=== PATIENT | female | born 1975 | race African-American/Black ===

== ENCOUNTER 2016-12-04 23:28 | Emergency (ER) | payer OTHER ==
[~2016-12-04] VITALS: Ht 175.3 cm; Wt 129.3 kg
[~2016-12-04 23:28] MED LIST: ATENOLOL100 MG PO; CITALOPRAM HBR20 MG PO; DESYREL100 MG PO; ZOLPIDEM TARTRAT5 MG PO
[2016-12-05 01:20] LABS: HEMATOCRIT 33.6 % (36.0-46.0); MCH 26.9 PG (29.0-34.0); MCV 81.6 FL (83-99); MEAN PLAT.VOLUME 9.9 uM^3 (9.5-12.4); PLATELET COUNT 246 K/uL (156-360); RBC DIS.WIDTH-CV 13.6 % (11.8-14.6); RBC DIS.WIDTH-SD 40.6 % (39-53); RED BLOOD COUNT 4.12 M/uL (3.80-5.20); WHITE BLOOD COUNT 5.4 K/uL (4.1-10.2)
[2016-12-05 01:32] LABS: CHLORIDE 102 mEq/L (99-109)
[2016-12-05 01:32] LABS: D-DIMER ELISA 0.57 mg/L FEU (< 0.57)
[2016-12-05 01:33] LABS: POTASSIUM 3.6 mEq/L (3.7-5.4); SODIUM 140 mEq/L (136-147)
[2016-12-05 01:35] LABS: GLUCOSE 85 mg/dL (70-99)
[2016-12-05 01:36] LABS: ANION GAP 9 MEQ/L (2-14)
[2016-12-05 01:37] LABS: TOTAL BILIRUBIN 0.3 mg/dL (0.0-1.0)
[2016-12-05 01:38] LABS: ALKALINE PHOSPHATASE 73 IU/L (3-129); GFR ESTIMATE (CALCULATED) > 59 mL/min/
[2016-12-05 01:40] LABS: UREA NITROGEN (BUN) 12 mg/dL (9-23)
[2016-12-05 01:42] LABS: LIPASE 39 U/L (1.0-51.0); TROP-I INTERPRETATION NEGATIVE; TROPONIN-I 0.02 ng/mL (0.0-0.30)
[2016-12-05 01:47] LABS: QUANTITATIVE HCG < 4.0 MIU/ML
[2016-12-05 02:08] LABS: ADD MIUA? YES; BILIRUBIN NEGATIVE; BLOOD NEGATIVE; COLOR YELLOW ((YELLOW)); GLUCOSE (STRIP) NEGATIVE; KETONES NEGATIVE; LEUKOCYTES NEGATIVE; NITRITE NEGATIVE; PROTEIN (STRIP) NEGATIVE; SPECIFIC GRAVITY 1.013 (1.000-1.030); UROBILINOGEN 0.2 MG/DL (0.2-1.0)
[2016-12-05 02:21] LABS: BACTERIA RARE /HPF; EPITHELIAL CELLS RARE /HPF; HYALINE CASTS 0-5 /LPF; MUCUS TRACE /LPF; RED BLOOD CELLS 0-5 /HPF (0-5); UCUL ADDED? NO; WHITE BLOOD CELLS 0-5 /HPF (0-5)
[2016-12-05 03:37] LABS: TROP-I INTERPRETATION NEGATIVE; TROPONIN-I 0.04 ng/mL (0.0-0.30)
[2016-12-05 05:17] VITALS: BP 97/60
== END 2016-12-05 05:22 | disposition home or self-care (01) ==
LOC: EME 23:28
PROVIDERS: Emergency Medicine
DX: R07.89 Other chest pain (principal); R06.02 Shortness of breath; R00.1 Bradycardia, unspecified; I10 Essential (primary) hypertension
CPT/HCPCS: 71020; 71275; 80053; 81003; 83690; 84484; 84702; 85027; 85379; 93005; 99281; 99285